=== PATIENT | female | born 1965 | race African-American/Black ===

== ENCOUNTER 2018-08-19 17:14 | Emergency (ER) | payer OTHER ==
[~2018-08-19] VITALS: Ht 165.1 cm; Wt 110.0 kg
[2018-08-19 18:57] VITALS: BP 115/70
== END 2018-08-19 19:01 | disposition home or self-care (01) ==
LOC: ER 17:14
DX: Z48.01 Encounter for change or removal of surgical wound dressing (principal); Z98.890 Other specified postprocedural states
CPT/HCPCS: 99283

== ENCOUNTER 2019-12-21 15:33 | Emergency (ER) | payer MEDICAID, OTHER ==
[~2019-12-21] VITALS: Ht 162.6 cm; Wt 105.0 kg
[2019-12-21] MEDS ORDERED: IBUPROFEN 600MG TABLET PO ONE (18:00)
[2019-12-21 18:48] VITALS: BP 151/74
== END 2019-12-21 19:02 | disposition home or self-care (01) ==
LOC: ER 15:33
DX: M25.532 Pain in left wrist (principal); R03.0 Elevated blood-pressure reading, without diagnosis of hypertension
CPT/HCPCS: 73100; 99283

== ENCOUNTER 2020-02-17 11:22 | Emergency (ER) | payer MEDICAID, OTHER ==
[~2020-02-17] VITALS: Ht 162.6 cm; Wt 122.7 kg
[2020-02-17 11:44] VITALS: BP 136/86
[2020-02-17] MEDS ORDERED: ACETAMINOPHEN 325MG TABLET PO ONE (14:00)
[2020-02-17 14:31] LABS: BG BASE EXCESS 5.3 mmol/L (-2.0-2.0); BG CARBOXYHEMOGLOBIN 0.2 % (0.5-1.5); BG DEOXYHEMOGLOBIN 4.3 % (0.0-5.0); BG HCO3 ACT 28.3 mmol/L (22.0-26.0); BG METHEMOGLOBIN 0.1 % (0.0-1.5); BG OXYGEN SATURATION 95.7 % (92.0-98.5); BG OXYHEMOGLOBIN 95.4 % (94.0-97.0); BG PCO2 36.1 mmHg (35.0-45.0); BG PH 7.512 (7.350-7.450); BG PO2 75.4 mmHg (75.0-100.0); BG SAMPLE SITE RIGHT RADIAL; BG TOTAL HEMOGLOBIN 12.8 g/dL (12.0-18.0); BG VENT MODE ROOM AIR
== END 2020-02-17 16:33 | disposition home or self-care (01) ==
LOC: ER 11:22
DX: U07.1 COVID-19 (principal); J18.9 Pneumonia, unspecified organism; I10 Essential (primary) hypertension
CPT/HCPCS: 36600; 71045; 82375; 82805; 87635; 93005; 99285; C9803

== ENCOUNTER 2020-10-18 22:39 | Emergency (ER) | payer OTHER ==
[~2020-10-18] VITALS: Ht 172.7 cm; Wt 100.0 kg
[2020-10-18] MEDS ORDERED: HYDROCODONE/ACETAMINOPHEN 5/325MG TABLET PO STA (23:15)
[2020-10-18 23:48] LABS: BASOPHILS % 0.4 % (0.0-2.0); EOSINOPHILS % 3.1 % (0.0-5.0); HEMATOCRIT. 34.7 % (36.0-48.0); HEMOGLOBIN. 11.7 g/dL (12.0-16.0); LYMPHOCYTES % 30.8 % (20.0-50.0); MEAN CORPUSCULAR VOLUME 80.2 fL (81.0-99.0); MEAN PLATELET VOLUME 9.9 fl (7.4-10.4); MONOCYTES % 4.7 % (2.0-8.0); PLATELET 195 x1000/uL (130-400); RED BLOOD CELL COUNT 4.33 mill/uL (4.2-5.4); RED CELL DISTRIBUTION WIDTH 15.2 % (11.6-14.6)
[2020-10-18 23:52] LABS: CHLORIDE 103 mEq/L (98-107)
[2020-10-19] MEDS ORDERED: SODIUM CHLORIDE 0.9% 1,000 ML IV ONE (02:15)
[2020-10-19] MEDS ORDERED: IOHEXOL-350 100 ML BOTTLE ONE (04:03)
[2020-10-19] MEDS ORDERED: IBUP-2029 MT (04:12)
[2020-10-19 04:25] VITALS: BP 148/84
== END 2020-10-19 04:25 | disposition home or self-care (01) ==
LOC: ER 22:39
DX: R07.2 Precordial pain (principal); R05 Cough; Z20.822 Contact with and (suspected) exposure to COVID-19; R03.0 Elevated blood-pressure reading, without diagnosis of hypertension; R73.9 Hyperglycemia, unspecified; R79.89 Other specified abnormal findings of blood chemistry
CPT/HCPCS: 36415; 71045; 71275; 80053; 83880; 84484; 85025; 85379; 87426; 96360; 96361; 99285; Q9967

== ENCOUNTER 2021-04-18 20:40 | Emergency (ER) | payer OTHER ==
[~2021-04-18] VITALS: Ht 170.2 cm; Wt 109.0 kg
[~2021-04-18 20:40] MED LIST: IBUP-2029 MT
[2021-04-18] MEDS: NITROGLYCERIN 0.4MG TABLET SL SL PRN ×2 (21:44→22:55)
[2021-04-18] MEDS ORDERED: ASPIRIN 81MG TABLET PO ONE (21:45)
[2021-04-18 22:00] LABS: BASOPHILS % 0.5 % (0.0-2.0); EOSINOPHILS % 1.9 % (0.0-5.0); HEMATOCRIT. 35.5 % (36.0-48.0); HEMOGLOBIN. 11.8 g/dL (12.0-16.0); LYMPHOCYTES % 30.7 % (20.0-50.0); MEAN CORPUSCULAR HEMOGLOBIN 26.9 pg (28.0-32.0); MEAN CORPUSCULAR VOLUME 81.1 fL (81.0-99.0); MONOCYTES % 3.7 % (2.0-8.0); NEUTROPHILS % 63.2 % (40.0-76.0); PLATELET 208 x1000/uL (130-400); RED BLOOD CELL COUNT 4.38 mill/uL (4.2-5.4); RED CELL DISTRIBUTION WIDTH 14.6 % (11.6-14.6)
[2021-04-18 22:05] LABS: CHLORIDE 102 mEq/L (98-107)
[2021-04-18] MEDS ORDERED: POTASSIUM CHLORIDE 20MEQ TABLET SR PO NR (22:45)
[2021-04-19] MEDS ORDERED: BACL-141 MT (01:57)
[2021-04-19] MEDS ORDERED: IBUP-2029 MT (01:57)
[2021-04-19 02:12] VITALS: BP 148/86
== END 2021-04-19 02:14 | disposition home or self-care (01) ==
LOC: ER 20:40
DX: R07.89 Other chest pain (principal); E87.6 Hypokalemia; I10 Essential (primary) hypertension
CPT/HCPCS: 36415; 71045; 80053; 84484; 85025; 99284

== ENCOUNTER 2021-06-01 13:19 | Emergency (ER) | payer OTHER ==
[~2021-06-01] VITALS: Ht 162.6 cm; Wt 121.0 kg
[~2021-06-01 13:19] MED LIST changes: +BACL-141 MT
[2021-06-01 15:55] LABS: BASOPHILS % 0.3 % (0.0-2.0); EOSINOPHILS % 1.2 % (0.0-5.0); HEMATOCRIT. 36.1 % (36.0-48.0); HEMOGLOBIN. 11.9 g/dL (12.0-16.0); LYMPHOCYTES % 19.2 % (20.0-50.0); MEAN CORPUSCULAR HEMOGLOBIN 26.4 pg (28.0-32.0); MEAN CORPUSCULAR VOLUME 80.1 fL (81.0-99.0); MEAN PLATELET VOLUME 10.3 fl (7.4-10.4); MONOCYTES % 3.3 % (2.0-8.0); PLATELET 212 x1000/uL (130-400); RED BLOOD CELL COUNT 4.51 mill/uL (4.2-5.4); RED CELL DISTRIBUTION WIDTH 14.8 % (11.6-14.6)
[2021-06-01 16:02] LABS: CHLORIDE 102 mEq/L (98-107)
[2021-06-01] MEDS: METHYLPREDNISOLONE SOD SUCC 125 MG/2 ML VIAL IM NR (16:51)
[2021-06-01] MEDS: KETOROLAC 60MG/2ML VIAL IM STA (16:51)
[2021-06-01] MEDS: POTASSIUM CHLORIDE 20MEQ TABLET SR PO NR (16:52)
[2021-06-01] MEDS ORDERED: T3 PO (16:56)
[2021-06-01] MEDS ORDERED: NAPR-681 PO (16:56)
[2021-06-01 17:20] VITALS: BP 146/89
== END 2021-06-01 17:48 | disposition home or self-care (01) ==
LOC: ER 13:19
DX: E79.0 Hyperuricemia without signs of inflammatory arthritis and tophaceous disease (principal); M79.674 Pain in right toe(s); E87.6 Hypokalemia
CPT/HCPCS: 36415; 73660; 80048; 84550; 85025; 96372; 99284; J1885; J2930; Z7610

== ENCOUNTER 2023-08-09 20:50 | Emergency (ER) | payer MEDICAID ==
[~2023-08-09] VITALS: Ht 162.6 cm; Wt 124.0 kg
[~2023-08-09 20:50] MED LIST changes: +NAPR-681 PO; +T3 PO
[2023-08-09 21:06] VITALS: O2SAT 97
[2023-08-09] MEDS: OXYCODONE HCL/ACETAMINOPHEN 5/325MG TABLET PO ONE (21:45)
[2023-08-09 23:37] VITALS: BP 182/77; PULSE 82; RESP 15; TEMP 98.3
== END 2023-08-09 23:39 | disposition home or self-care (01) ==
LOC: ER 20:50
DX: M25.561 Pain in right knee (principal); J45.909 Unspecified asthma, uncomplicated; I10 Essential (primary) hypertension; Z90.710 Acquired absence of both cervix and uterus; Z79.899 Other long term (current) drug therapy
CPT/HCPCS: 73562; 99283

== ENCOUNTER 2023-11-30 20:46 | Emergency (ER) | payer MEDICAID ==
[~2023-11-30] VITALS: Ht 175.3 cm; Wt 84.0 kg
[2023-11-30 20:48] VITALS: O2SAT 98
[2023-11-30] MEDS ORDERED: IBUPROFEN 400MG TABLET PO ONE (21:30)
[2023-12-01] MEDS: KETOROLAC 15MG/ML VIAL IV ONE (00:08)
[2023-12-01] MEDS ORDERED: IBUP-2028 MT (00:55)
[2023-12-01 01:00] VITALS: BP 158/94; PULSE 75; RESP 17; TEMP 36.78072; O2SAT 100
== END 2023-12-01 04:51 | disposition home or self-care (01) ==
LOC: ER 20:46
DX: M25.531 Pain in right wrist (principal); M25.561 Pain in right knee; M25.551 Pain in right hip; J45.909 Unspecified asthma, uncomplicated; E78.00 Pure hypercholesterolemia, unspecified; I10 Essential (primary) hypertension; Z79.899 Other long term (current) drug therapy; W18.39XA Other fall on same level, initial encounter; Y93.89 Activity, other specified; Y92.89 Other specified places as the place of occurrence of the external cause; Y99.8 Other external cause status
CPT/HCPCS: 73110; 73560; 72192; 99285; 96374; J1885; Z7610